=== PATIENT | male | born 1950 | race African-American/Black ===

== ENCOUNTER 2019-01-18 14:13 | Emergency (ER) | payer MEDICAID, MEDICARE ==
[~2019-01-18] VITALS: Ht 180.3 cm; Wt 140.0 kg
[~2019-01-18 14:13] MED LIST: AMLO10TA80 PO; ASPI-518 PO; CARV25TA47 PO; FURO20TA4 PO; GABA-290 PO; INSU100C6 SQ; LEVO25TA2; NAPR-681 PO; SIMV20TA6 PO; TAMS-11 PO; VALS160T2 PO
[2019-01-18] MEDS ORDERED: KETOROLAC 60MG/2ML VIAL IM ONE (15:15)
[2019-01-18 18:50] VITALS: BP 124/43
== END 2019-01-18 18:55 ==
LOC: ER 14:13
DX: M17.12 Unilateral primary osteoarthritis, left knee (principal); M25.462 Effusion, left knee; M85.88 Other specified disorders of bone density and structure, other site; I25.10 Atherosclerotic heart disease of native coronary artery without angina pectoris; I50.9 Heart failure, unspecified; E11.9 Type 2 diabetes mellitus without complications; E78.00 Pure hypercholesterolemia, unspecified; Z79.82 Long term (current) use of aspirin; Z79.4 Long term (current) use of insulin; W06.XXXA Fall from bed, initial encounter; Y93.89 Activity, other specified; Y92.9 Unspecified place or not applicable
CPT/HCPCS: 73560; 96372; 99285; J1885